=== PATIENT | female | born 1950 | race Caucasian/White ===

== ENCOUNTER 2022-04-21 23:09 | Emergency (ER) | payer MEDICARE, OTHER ==
[2022-04-21 23:40] LABS: ESTIMATED GFR 93 mL/min (>60)
[2022-04-22] MEDS: Sodium Chloride 0.9% 1,000 ML IV ONE (00:42)
== END 2022-04-22 02:41 | disposition home or self-care (01) ==
LOC: LB.ED 23:09
DX: R53.1 Weakness (principal); I10 Essential (primary) hypertension; E78.00 Pure hypercholesterolemia, unspecified; K21.9 Gastro-esophageal reflux disease without esophagitis; Z88.0 Allergy status to penicillin; Z79.899 Other long term (current) drug therapy
CPT/HCPCS: 36415; 80048; 81001; 85025; 96360; 96361; 99283; 99285-25; A0425; A0429; J7030

== ENCOUNTER 2022-08-15 17:55 | Emergency (ER) | payer MEDICARE, OTHER ==
[2022-08-15] MEDS ORDERED: Atropine 0.4 MG/ML SDV IVPUSH ONE (18:14)
[2022-08-15] MEDS: Atropine 0.1 MG/ML 10 ML Syringe IVPUSH ONE ×2 (18:21→18:39)
[2022-08-15] MEDS: Sodium Chloride 0.9% 1,000 ML IV ONE ×2 (18:34→22:21)
[2022-08-15 18:37] LABS: BASOPHILS ABSOLUTE AUTO 0.04 K/uL (0.02-0.10); BASOPHILS PERCENT AUTO 0.3 % (0.0-0.5); EOSINOPHILS PERCENT AUTO 0.8 % (1.0-5.0); HEMATOCRIT 29.7 % (37.0-47.0); LYMPHOCYTES ABSOLUTE AUTO 1.68 K/uL (1.50-4.00); LYMPHOCYTES PERCENT AUTO 13.5 % (20.0-40.0); MEAN CORPUSCULAR HEMOGLOBIN 33.3 pg (27.0-32.0); MEAN CORPUSCULAR HGB CONC 33.7 g/dL (31.0-35.0); MEAN CORPUSCULAR VOLUME 99 fL (76-96); MEAN PLATELET VOLUME 9.4 fL (6.0-10.0); MONOCYTES ABSOLUTE AUTO 0.88 K/uL (0.20-0.80); MONOCYTES PERCENT AUTO 7.1 % (3.0-10.0); NEUTROPHILS ABSOLUTE AUTO 9.78 K/uL (2.00-7.50); NEUTROPHILS PERCENT AUTO 78.3 % (45.0-70.0); PLATELET COUNT,PLT 219 K/uL (150-500); RED CELL DISTRIBUTION WIDTH 13.1 % (11.0-16.0); WHITE BLOOD CELL COUNT,WBC 12.5 K/uL (4.0-11.0)
[2022-08-15] MEDS ORDERED: fentaNYL 100 MCG/2 ML SDV IVPUSH ONE ×2 (18:51→19:31)
[2022-08-15 18:52] LABS: A/G RATIO 1.1 (0.8-2.0); ALBUMIN 3.9 g/dL (3.4-5.0); BILIRUBIN TOTAL 0.9 mg/dL (0.0-1.0); BUN/CREATININE RATIO 13.7 (6-25); CALCIUM 8.9 mg/dL (8.5-10.1); CARBON DIOXIDE,CO2 19.1 mmol/L (21.0-32.0); CREATININE 2.26 mg/dL (0.55-1.02); EST CRCL DRUG DOSING (CG) 18.32 mL/min; PROTEIN TOTAL,TP 7.3 g/dL (6.4-8.2)
[2022-08-15] MEDS ORDERED: Midazolam 1 MG/ML 2 ML SDV IVPUSH ONE (18:53)
[2022-08-15 18:56] LABS: ANION GAP 19.5 mmol/L (5.0-15.0)
[2022-08-15 18:57] LABS: POTASSIUM,K 7.6 mmol/L (3.5-5.1)
[2022-08-15 19:03] LABS: TROPONIN I HIGH SENSITIVITY 8.9 pg/ml (<=60.4); TSH ULTRASENSITIVE 10.147 uIU/mL (0.358-3.740)
[2022-08-15] MEDS ORDERED: Glucagon,Human Recombinant 1 MG Vial IM PRN ×2 (19:11→21:56)
[2022-08-15] MEDS ORDERED: 50% Dextrose in Water 50 ML Syringe IVPUSH PRN ×2 (19:11→21:56)
[2022-08-15] MEDS ORDERED: 50% Dextrose in Water 50 ML Syringe IVPUSH ONE (19:11)
[2022-08-15] MEDS ORDERED: Insulin Regular, Human 100 Units/ML 3 ML Vial IV ONE ×2 (19:11→21:56)
[2022-08-15] MEDS ORDERED: Sodium Chloride 0.9% 1,000 ML IV ONE (19:12)
[2022-08-15] MEDS: Calcium Gluconate 10% 1 GM/10 ML SDV IVPUSH ONE ×2 (19:12→19:16)
[2022-08-15] MEDS ORDERED: Sodium Chloride 3% 500 ML IV SCH (19:15)
[2022-08-15] MEDS ORDERED: Etomidate 2 MG/ML 10 ML SDV IVPUSH ONE (19:40)
[2022-08-15] MEDS: Ketamine 200 MG/20 ML MDV IVPUSH ONE ×2 (20:07→22:05)
[2022-08-15] MEDS ORDERED: Norepinephrine 8 MG in Dextrose 5% in Water 250 ML IV SCH ×2 (20:15)
[2022-08-15] MEDS ORDERED: Furosemide 40 MG/4 ML VIAL IVPUSH ONE (20:33)
[2022-08-15 21:47] LABS: A/G RATIO 0.9 (0.8-2.0); ALBUMIN 3.5 g/dL (3.4-5.0); ANION GAP 18.8 mmol/L (5.0-15.0); BUN/CREATININE RATIO 14.3 (6-25); CALCIUM 8.6 mg/dL (8.5-10.1); CARBON DIOXIDE,CO2 19.2 mmol/L (21.0-32.0); CREATININE 2.23 mg/dL (0.55-1.02); EST CRCL DRUG DOSING (CG) 18.57 mL/min; PROTEIN TOTAL,TP 7.4 g/dL (6.4-8.2)
[2022-08-15] MEDS ORDERED: Calcium Gluconate 10% 1 GM/10 ML SDV IVPUSH ONE (22:04)
== END 2022-08-15 23:15 ==
LOC: LB.ED 17:55
DX: R57.0 Cardiogenic shock (principal); I48.91 Unspecified atrial fibrillation; E78.00 Pure hypercholesterolemia, unspecified; I10 Essential (primary) hypertension; Z88.0 Allergy status to penicillin; Z79.899 Other long term (current) drug therapy
CPT/HCPCS: 31500; 36415; 51702; 71045; 80053; 82947; 84443; 84484; 85025; 93005; 96361; 96365; 96366; 96375; 96376; 99285-25; J0461; J0612; J1940; J2250; J3010; J3490; J7030; J7060

== ENCOUNTER 2022-10-15 15:40 | Emergency (ER) | payer MEDICARE, BC ==
[2022-10-15 16:12] LABS: HEMATOCRIT 42.2 % (37.0-47.0); HEMOGLOBIN 14.8 g/dL (11.5-16.5); MEAN CORPUSCULAR HEMOGLOBIN 34.5 pg (27.0-32.0); MEAN CORPUSCULAR HGB CONC 35.1 g/dL (31.0-35.0); MEAN PLATELET VOLUME 8.6 fL (6.0-10.0); RED BLOOD CELL COUNT 4.29 M/uL (3.80-5.80); RED CELL DISTRIBUTION WIDTH 15.3 % (11.0-16.0); WHITE BLOOD CELL COUNT,WBC 9.4 K/uL (4.0-11.0)
[2022-10-15 16:25] LABS: BUN/CREATININE RATIO 32.7 (6-25); CALCIUM 9.8 mg/dL (8.5-10.1); CARBON DIOXIDE,CO2 26.7 mmol/L (21.0-32.0); CREATININE 1.68 mg/dL (0.55-1.02); EST CRCL DRUG DOSING (CG) 24.64 mL/min; POTASSIUM,K 4.5 mmol/L (3.5-5.1)
[2022-10-15 16:27] LABS: ANION GAP 17.8 mmol/L (5.0-15.0)
[2022-10-15] MEDS: Acetaminophen 325 MG Tab PO ONE (17:56)
[2022-10-15] MEDS: Sodium Chloride 0.9% 1,000 ML IV SCH (17:58)
[2022-10-15] MEDS: Acetaminophen 500 MG Tab ONE (17:59)
[2022-10-15 19:14] LABS: PHOSPHORUS 4.6 mg/dL (2.5-4.9)
[2022-10-15 19:57] LABS: APPEARANCE,URINE CLEAR (CLEAR); BILIRUBIN,URINE NEGATIVE (NEGATIVE); COLOR,URINE YELLOW; GLUCOSE,URINE NEGATIVE (NEGATIVE); KETONES,URINE NEGATIVE (NEGATIVE); LEUKOCYTE ESTERASE,URINE NEGATIVE (NEGATIVE); NITRITE,URINE NEGATIVE (NEGATIVE); OCCULT BLOOD,URINE TRACE-INTACT (NEGATIVE); PH,URINE 5.5 (5.0-8.0); PROTEIN,URINE TRACE mg/dL (NEGATIVE); UROBILINOGEN,URINE 0.2 E.U./dL (0.2-1.0)
[2022-10-15 20:01] LABS: RBC,URINE 0-5 /HPF; SQUAMOUS EPITHELIAL CELLS,UR FEW /HPF; WBC,URINE 0-5 /HPF
== END 2022-10-15 20:46 | disposition home or self-care (01) ==
LOC: LB.ED 15:40
DX: E86.0 Dehydration (principal); I48.91 Unspecified atrial fibrillation; I11.0 Hypertensive heart disease with heart failure; I50.9 Heart failure, unspecified; E78.00 Pure hypercholesterolemia, unspecified; Z95.0 Presence of cardiac pacemaker; Z88.0 Allergy status to penicillin; Z88.8 Allergy status to other drugs, medicaments and biological substances; Z86.73 Personal history of transient ischemic attack (TIA), and cerebral infarction without residual deficits; Z79.01 Long term (current) use of anticoagulants
CPT/HCPCS: 36415; 80048; 81001; 83735; 84100; 84484; 85027; 93005; 96360; 99283; A9270; J7030